=== PATIENT | female | born 1950 | race Asian ===

== ENCOUNTER → 2017-04-11 | Outpatient (CLI) | payer OTHER, BC | LOC: BMCIMAGING 09:29 | PROVIDERS: ATTEND Obstetrics & Gynecology | DX: Z12.31 Encounter for screening mammogram for malignant neoplasm of breast (principal) | CPT/HCPCS: G0202 ==

== ENCOUNTER → 2017-04-18 | Outpatient (CLI) | payer OTHER, BC | LOC: BMCIMAGING 13:49 | PROVIDERS: ATTEND Obstetrics & Gynecology | DX: Z13.820 Encounter for screening for osteoporosis (principal); M85.80 Other specified disorders of bone density and structure, unspecified site ==

== ENCOUNTER → 2018-01-16 | Outpatient (CLI) | payer OTHER, BC | LOC: BMCIMAGING 09:42 | PROVIDERS: ATTEND Internal Medicine | DX: R05 Cough (principal); R63.4 Abnormal weight loss; R93.1 Abnormal findings on diagnostic imaging of heart and coronary circulation ==

== ENCOUNTER → 2018-01-21 | Outpatient (CLI) | payer OTHER, BC ==
[~2018-01-21] MED LIST: IOPAMIDOL (ISOVUE 370) 100 ML BTL IV ONE
== END ==
LOC: FIMAGING 12:41
PROVIDERS: ATTEND Internal Medicine
DX: I71.2 Thoracic aortic aneurysm, without rupture (principal); R05 Cough; R63.4 Abnormal weight loss; I10 Essential (primary) hypertension; M41.84 Other forms of scoliosis, thoracic region
CPT/HCPCS: 71275; Q9967; 82565-PO

== ENCOUNTER → 2018-04-24 | Outpatient (CLI) | payer OTHER, BC | LOC: BMCIMAGING 13:48 | PROVIDERS: ATTEND Obstetrics & Gynecology | DX: Z12.31 Encounter for screening mammogram for malignant neoplasm of breast (principal) ==